=== PATIENT | male | born 1950 | race Caucasian/White ===

== ENCOUNTER 2019-05-03 10:24 | Outpatient (CLI) | payer OTHER ==
[~2019-05-03 10:24] MED LIST: AMLO2.5T2 PO; ATOR40TA PO; CARV-50 PO; COU1T PO; CYAN-51 PO; FAMO40TA7 PO; LISI-600 PO
== END 2019-05-03 23:59 | disposition home or self-care (01) ==
LOC: RAD 10:24
PROVIDERS: ATTEND Internal Medicine Critical Care Medicine
DX: S71.001A Unspecified open wound, right hip, initial encounter (principal); J96.00 Acute respiratory failure, unspecified whether with hypoxia or hypercapnia; X58.XXXA Exposure to other specified factors, initial encounter; Y93.89 Activity, other specified; Y92.89 Other specified places as the place of occurrence of the external cause; Y99.8 Other external cause status
CPT/HCPCS: 78300; A9503